=== PATIENT | female | born 1965 | race Caucasian/White ===

== ENCOUNTER 2022-06-06 10:05 | Emergency (ER) | payer BC, SELFPAY | END 2022-06-06 10:42 | disposition left against medical advice (07) | LOC: EXPTROY 10:14 | PROVIDERS: Emergency Provider Nurse Practitioner; PCP Physician Assistant | DX: Z53.21 Procedure and treatment not carried out due to patient leaving prior to being seen by health care provider (principal) | CPT/HCPCS: 99199 ==